=== PATIENT | female | born 1945 | race Two or more races ===

== ENCOUNTER 2018-09-30 13:00 | Inpatient (IN) | payer OTHER ==
[~2018-09-30] VITALS: Ht 147.3 cm; Wt 64.9 kg
[2018-09-30] MEDS ORDERED: COZAAR100 MG (15:56)
[2018-09-30] MEDS ORDERED: TOPROL XL100 MG (15:57)
[2018-10-07] MEDS ORDERED: GABAPENTIN800 MG PO (11:55)
[2018-10-07] MEDS ORDERED: AMOX-CLAV 875-1 EACH PO (11:56)
[2018-10-07] MEDS ORDERED: PERCOCET 5-3251 EACH PO (11:58)
[2018-10-07] MEDS ORDERED: CLONAZEPAM1 MG PO ×2 (11:58)
[2018-10-07] MEDS ORDERED: DOCUSATE SODIU100 MG PO (11:58)
[2018-10-07] MEDS ORDERED: DOLOGESIC 500-1 EACH PO (13:52)
[2018-10-07] MEDS ORDERED: MEDROLPACK PO (13:52)
== END 2018-10-07 14:38 | disposition home or self-care (01) | DRG 455 ==
LOC: O/R 10-06 04:33 → SURH 10-06 04:33 → MEDI 10-06 10:52 → SURH 10-06 10:52
PROVIDERS: Orthopaedic Surgery Orthopaedic Surgery of the Spine
PROC: 0SG0071 Fusion of Lumbar Vertebral Joint with Autologous Tissue Substitute, Posterior Approach, Posterior Column, Open Approach (ICD-10-PCS; 2018-10-06)
PROC: 0ST20ZZ Resection of Lumbar Vertebral Disc, Open Approach (ICD-10-PCS; 2018-10-06)
PROC: 0SG00AJ Fusion of Lumbar Vertebral Joint with Interbody Fusion Device, Posterior Approach, Anterior Column, Open Approach (ICD-10-PCS; 2018-10-06)
PROC: 07DS3ZZ Extraction of Vertebral Bone Marrow, Percutaneous Approach (ICD-10-PCS; 2018-10-06)
PROC: 4A12X4Z Monitoring of Cardiac Electrical Activity, External Approach (ICD-10-PCS; 2018-10-06)
PROC: 0SG00A0 Fusion of Lumbar Vertebral Joint with Interbody Fusion Device, Anterior Approach, Anterior Column, Open Approach (ICD-10-PCS; principal; 2018-10-06 10:15)
DX: M48.061 Spinal stenosis, lumbar region without neurogenic claudication (principal); M43.16 Spondylolisthesis, lumbar region; M51.16 Intervertebral disc disorders with radiculopathy, lumbar region; I10 Essential (primary) hypertension